=== PATIENT | female | born 1980 | race Caucasian/White ===

== ENCOUNTER 2025-09-05 09:36 | Emergency (ER) | payer OTHER, SELFPAY ==
--- NOTE | ~2025-09-05 | CT_ITS ---
CLINICAL HISTORY: LUQ tenderness, family hx pancreatic CA Exam: Contrast-enhanced CT abdomen and pelvis with multiplanar reformats. Comparison: None. Findings: CT abdomen: Lung bases are clear. Liver reveals a subcentimeter segment 6 hypodensity (4; 256), too small to characterize although likely small cyst. No other focal lesions. No ductal dilatation. Gallbladder is absent. Spleen appears unremarkable. Pancreas and adrenal glands appear unremarkable. Kidneys appear unremarkable. No free intraperitoneal fluid or retroperitoneal masses or adenopathy. Abdominal aorta is normal caliber. Bowel loops reveal no abnormal wall thickening or distention. The appendix is unremarkable. No diverticular disease. CT pelvis: Uterus is surgically absent. Urinary bladder is free of gross filling defects. No pelvic masses, fluid or adenopathy. Osseous structures reveal no destructive osseous lesions. Impression: 1. No acute abnormality or CT explanation for reported history of left upper quadrant tenderness. This document has been electronically signed by: Leonard Smith MD on 09/05/2025 13:17:01
[2025-09-05 09:40] VITALS: BP 121/61; PULSE 83; RESP 18; TEMP 36.3; O2SAT 100; BMI 34.8
--- NOTE | 2025-09-05 10:09 | ED.GENADULT ---
HPI - General Adult General Chief complaint: Abdominal Pain Stated complaint: Stomach Pain Time Seen by Provider: 09/05/25 10:09 Source: patient, RN notes reviewed and old records reviewed Mode of arrival: ambulatory Limitations: no limitations History of Present Illness ED Provider: Dor[facility] narrative: Patient is a 44-year-old female with history of cholecystectomy, hysterectomy presenting to the emergency department with several months to a year of left upper quadrant abdominal pain. Reports that the pain waxes and wanes but is always present. Denies associated nausea and vomiting. Reports chronic diarrhea and foul-smelling stool ever since cholecystectomy. Denies fevers. Denies hematochezia or melena. Reports family history of pancreatic cancer of her father. Recently moved to the area and also seeking recommendations for PCP and follow up. MD complaint: abdominal pain Related Data Allergies Allergy/AdvReac Type Severity Reaction Status Date / Time azithromycin Allergy Intermediate Hives Verified 09/05/25 09:40 Review of Systems Review of Systems: As per hPI Yes all other systems are reviewed and are negative Constitutional: Constitutional: Reports as per HPI [facility] Social History Social History Smoked in Last 30 Days: No Use of substances other than those prescribed or required for medical reasons: Yes Substance Use Type: Marijuana Advance Directives: No Advance Directives Information Provided: Yes Do you have a plan to hurt others: No Plan Patient : No Physical Exam ED Vital Signs: Vital Signs - 24 hr 09/05/25 09:40 09/05/25 12:23 Temperature 97.3 F 98.1 F Pulse Rate 83 67 Respiratory Rate 18 16 Blood Pressure 121/61 107/59 L Pulse Oximetry 100 99 Oxygen Delivery Method Room Air Room Air BMI result Body Mass Index 34.8 Vital signs have been reviewed and appear to be correct. Blood pressure normal. Heart rate normal. Respiratory rate normal. Temperature normal. Oxygen saturation normal. Const General: cooperative, healthy appearing and no acute distress Orientation/consciousness: oriented to person, oriented to place, oriented to time and patient oriented x3 Limitations: no limitations HENMT Head: Yes normocephalic and Yes atraumatic Ears: external ears normal General nose exam: Normal external nose present Face and sinus: Yes face symmetric Mouth: oropharynx normal and moist mucous membranes Throat: Yes uvula midline Eyes Pupils: Equal, round and reactive pupils present Neck Neck: Yes normal visual inspection and Yes supple Resp Effort & Inspection: normal respiratory effort and able to speak in complete sentences Auscultation: clear to auscultation bilaterally Cardio Rate: regular rate Rhythm: regular rhythm Heart sounds: S1 normal heart sound present and S2 normal heart sound present GI Palpation (GI): Soft to palpation and Tenderness to palpation present (GI) in the LUQ Auscultation: normoactive bowel sounds General: Yes no CVA tenderness Back/Spine/Pelvis Back: no CVA tenderness Skin General skin exam: elasticity normal and turgor normal Neuro General: oriented to person, oriented to place, oriented to time, patient oriented x3, moves all extremities, no focal motor deficits and CN's II-XI intact bilaterally Cranial nerves: Yes Equal, round and reactive pupils present Cognition (Neuro): normal cognition Extrem General: Yes full ROM, Yes no pedal edema and Yes no calf tenderness Psych Mental Status: mental status grossly normal Affect: normal affect Thought process: Normal thought process present Medications Administered Discontinued Medications Generic Name Dose Route Start Last Admin Trade Name Freq PRN Reason Stop Dose Admin Iohexol 85 ml 09/05/25 12:12 09/05/25 12:13 Iohexol 350 Mg/Ml 100 Ml Infus..Btl IV 09/05/25 12:13 85 ml ONCE ONE Administration Ketorolac Tromethamine 15 mg 09/05/25 12:11 09/05/25 12:21 Ketorolac Tromethamine 15 Mg/Ml Vial IVPUSH 09/05/25 12:12 15 mg ONCE ONE Administration Ondansetron HCl 4 mg 09/05/25 12:11 09/05/25 12:19 Ondansetron Hcl 4 Mg/2 Ml Vial IVPUSH 09/05/25 12:12 4 mg ONCE ONE Administration Medical Decision Making Medical Decision Making [facility] Narrative: Patient is a 44-year-old female with history of cholecystectomy, hysterectomy presenting to the emergency department with several months to a year of left upper quadrant abdominal pain. On exam patient is awake, A+Ox3, VS WNL, afebrile, normal neurological exam without focal deficits, physical exam findings as above. Given reported symptoms and physical exam findings, initial differential includes but is not limited to pancreatitis, gastritis, PUD. Labs unremarkable. CT Abdomen pelvis is without acute explanation for patient's abdominal pain. My interpretation is in agreement with the radiologist's interpretation. Results discussed with patient and all questions answered. Patient will be provided with resources for establishing care with a primary care provider, will also refer to GI. Return precautions discussed. Patient verbalized understanding of and agreement with plan. Differential Diagnosis Differential Diagnoses: The differential diagnosis associated with the presentation includes As per [facility] Admission/Observation Consideration of admission/observation: Escalation of care including admission/observation considered Patient would have been admitted to the hospital and transferred to appropriate facility had their clinical presentation warranted hospital admission. Lab Data [facility] Lab Attestation statement: I reviewed the patient's lab results. as per [facility] 09/05/25 11:06 09/05/25 11:06 Labs: Lab Results 09/05/25 09/05/25 Range/Units 11:06 11:15 WBC 7.7 (4.8-10.8) X10*3/uL RBC 4.83 (4.20-5.50) X10*6/uL Hgb 13.5 (12.0-16.0) g/dl Hct 41.6 (37.0-47.0) % MCV 86.1 (80.0-98.0) fL MCH 28.0 (27.0-33.0) pg MCHC 32.5 (31.0-35.0) g/dl RDW 12.7 (11.0-16.0) % Plt Count 323 (160-400) X10*3/uL MPV 9.2 L (9.4-12.3) fL Immature Gran % (Auto) 0.3 (0.0-0.4) % Neut % (Auto) 62.9 (45-73) % Lymph % (Auto) 27.7 (20-40) % [place] % (Auto) 7.5 (2-11) % Eos % (Auto) 1.3 (0-4) % Baso % (Auto) 0.3 (0-2) % Lymph # (Auto) 2.1 (1.2-4.9) X10*3/uL [place] # (Auto) 0.6 (0.1-1.2) X10*3/uL Eos # (Auto) 0.1 (0.0-0.4) X10*3/uL Baso # (Auto) 0.0 (0.0-0.2) X10*3/uL Abs Immat Gran (auto) 0.02 (0.00-0.03) X10*3/uL Absolute Neuts (auto) 4.9 (2.0-8.3) x10*3/uL Absolute Nucleated RBC 0.000 (0.0-0.012) X10*3/uL Nucleated RBC % (auto) 0.0 (0.0-0.2) /100WBC Sodium 138 (135-145) mmol/L Potassium 4.2 (3.3-5.1) mmol/L Chloride 106 (96-108) mmol/L Carbon Dioxide 25 (22-29) mmol/L Anion Gap 11 L (12-20) BUN 14 (9-16) mg/dL Creatinine 0.78 (0.5-1.4) mg/dL Estim Creat Clear Calc 91.8 Estimated GFR > 60 Random Glucose 90 (60-115) mg/dL Calcium 9.2 (8.4-10.2) mg/dL Total Bilirubin 0.4 (0.0-1.0) mg/dL AST 18 (5-31) U/L ALT 19 (0-31) U/L Alkaline Phosphatase 96 (39-117) U/L Total Protein 7.4 (6.5-8.0) g/dL Albumin 4.6 (3.5-5.0) g/dL Beta HCG, Quant < 2 mIU/mL Urine Color Yellow Urine Appearance Clear Urine pH 8.0 (5.0-9.0) Ur Specific [place] 1.020 (1.005-1.025) Urine Protein Negative (Neg-Trace) mg/dL Urine Glucose (UA) Negative (Negative) mg/dL Urine Ketones Trace (Negative) mg/dL Urine Blood Negative (Negative) Urine Nitrite Negative (Negative) Ur Leukocyte Esterase Moderate (2+) H (Negative) Urine RBC 0-2 (0-2) /HPF Urine WBC 0-5 (0-5) /HPF Ur Squamous Epith Cells 0-2 (0-2) /HPF Urine Bacteria Trace (None Seen) Hyaline Casts 0-2 (0-2) /LPF Independent Interpretation I performed an independent interpretation of an: CT Scan Interpretation: CT abdomen pelvis is without any acute abnormality to explain patient's abdominal pain. Radiology Impression Discussion of test interpretation with radiology: I have reviewed the radiologist's reading. Radiologist Impression: Findings: CT abdomen: Lung bases are clear. Liver reveals a subcentimeter segment 6 hypodensity (4; 256), too small to characterize although likely small cyst. No other focal lesions. No ductal dilatation. Gallbladder is absent. Spleen appears unremarkable. Pancreas and adrenal glands appear unremarkable. Kidneys appear unremarkable. No free intraperitoneal fluid or retroperitoneal masses or adenopathy. Abdominal aorta is normal caliber. Bowel loops reveal no abnormal wall thickening or distention. The appendix is unremarkable. No diverticular disease. CT pelvis: Uterus is surgically absent. Urinary bladder is free of gross filling defects. No pelvic masses, fluid or adenopathy. Osseous structures reveal no destructive osseous lesions. Impression: 1. No acute abnormality or CT explanation for reported history of left upper quadrant tenderness. External Record Review External record reviewed: Inpatient record, Office record and Outpatient record Discharge Plan Discharge Clinical Impression: Abdominal pain Patient Disposition: Home, Self-Care Instructions: Abdominal Pain (ED) Additional Instructions: You have been evaluated in the emergency department today for abdominal pain. Your evaluation did not show evidence of medical conditions requiring emergent intervention at this time. Please Use the resources provided to establish care with a new primary care physician. You are also being referred to the senior qa analyst for further evaluation and management of your symptoms. Return to the emergency department if you experience worsening or uncontrolled pain, fevers 100.4? F or greater, recurrent vomiting, inability to tolerate food or fluids by mouth, bloody stools or vomit, black or tarry stools, or any other concerning symptoms. Referrals: [facility] [Provider Group, Internal Medicine] [facility] [Provider Group, Internal Medicine] [facility] [Provider Group, Gastroenterology] - 1 week Referral Note: LUQ pain x mos, family hx of pancreatic CA-father; CT A/P normal in ED Clinical Impression: Abdominal pain Print Language: Chinese
[2025-09-05 11:11] LABS: MANUAL DIFF FLAG NO
[2025-09-05 11:18] LABS: Hematocrit 41.6 % (37.0-47.0); Hemoglobin 13.5 g/dl (12.0-16.0); Imm Gran Abs Auto 0.02 X10*3/uL (0.00-0.03); Imm Gran Pct Auto 0.3 % (0.0-0.4); Lymphocytes Absolute Auto 2.1 X10*3/uL (1.2-4.9); Mean Corpuscular HGB Conc 32.5 g/dl (31.0-35.0); Mean Corpuscular Hemoglobin 28.0 pg (27.0-33.0); Mean Corpuscular Volume 86.1 fL (80.0-98.0); NRBC Abs Auto 0.000 X10*3/uL (0.0-0.012); NRBC Pct Auto 0.0 /100WBC (0.0-0.2); Platelet Count 323 X10*3/uL (160-400); Red Blood Count 4.83 X10*6/uL (4.20-5.50); White Blood Count 7.7 X10*3/uL (4.8-10.8)
[2025-09-05 11:24] LABS: Appearance Urine Clear; Glucose Urine UA Negative (Negative); PH 8.0 (5.0-9.0); Specific Gravity - Urine 1.020 (1.005-1.025); UMIC TRIGGER UACC YES
[2025-09-05 11:40] LABS: UACC Culture Trigger YES
[2025-09-05 11:41] LABS: Alanine Aminotransferase 19 U/L (0-31); Albumin Level 4.6 g/dL (3.5-5.0); Alkaline Phosphatase 96 U/L (39-117); Anion Gap 11 (12-20); Aspartate Amino Transferase 18 U/L (5-31); Blood Urea Nitrogen 14 mg/dL (9-16); Calcium 9.2 mg/dL (8.4-10.2); Carbon Dioxide 25 mmol/L (22-29); Chloride 106 mmol/L (96-108); Creatinine Clr Calc Pharmacy 91.8; Estimated Glomerular Filt Rate > 60; Potassium 4.2 mmol/L (3.3-5.1); Sodium 138 mmol/L (135-145); Total Protein 7.4 g/dL (6.5-8.0)
[2025-09-05] MEDS: iohexoL 350 MG/ML 100 ML INFUS..BTL 85 ML IV (12:13)
[2025-09-05 12:23] VITALS: BP 107/59; PULSE 67; RESP 16; TEMP 36.7; O2SAT 99
[2025-09-05 14:24] VITALS: BP 107/59; PULSE 67; RESP 16; TEMP 36.7; O2SAT 99
== END 2025-09-05 14:24 | disposition home or self-care (01) ==
PROVIDERS: Registered Nurse Emergency; Emergency Provider Emergency Medicine
DX: R10.12 Left upper quadrant pain (principal); Z90.49 Acquired absence of other specified parts of digestive tract; Z90.710 Acquired absence of both cervix and uterus; Z88.1 Allergy status to other antibiotic agents
CPT/HCPCS: 36415; 74177; 80053; 81001; 84702; 85025; 87086; 87147; 96374; 96375; 99285; J1885; J2405; Q9967

== ENCOUNTER → 2025-09-05 10:37 | Outpatient (BNV) | payer OTHER, SELFPAY | PROVIDERS: Emergency Provider Emergency Medicine; Visit Provider Radiology Diagnostic Radiology | DX: R10.12 Left upper quadrant pain (principal); Z80.0 Family history of malignant neoplasm of digestive organs | CPT/HCPCS: 74177 ==